=== PATIENT | male | born 1970 | race Caucasian/White ===

== ENCOUNTER 2017-01-27 21:19 | Inpatient (IN) | payer OTHER ==
[~2017-01-27] VITALS: Ht 182.9 cm; Wt 166.0 kg
[2017-01-27 22:00] LABS: RED BLOOD COUNT 4.86 M/UL (4.20-5.50); WHITE BLOOD COUNT 6.8 K/UL (4.5-11.0)
[2017-01-27 22:15] LABS: BUN/CREATININE RATIO 11 (0-10)
[2017-01-28] MEDS ORDERED: KLONOPIN TAB 00.5 MG PO (02:33)
[2017-01-28] MEDS ORDERED: NEURONTIN 300300 MG PO (02:33)
[2017-01-28] MEDS ORDERED: FLEXERIL 10 MG10 MG PO ×2 (02:33→02:57)
[2017-01-28] MEDS ORDERED: BASAGLAR INJ (03:03)
[2017-01-28] MEDS ORDERED: HUMALOG100 UNIT/3 INJ (03:07)
[2017-01-28] MEDS ORDERED: PROTONIX 20 MG20 MG PO (03:08)
[2017-01-28] MEDS ORDERED: LUVOX TAB 100100 MG PO (03:09)
[2017-01-28 03:13] LABS: BUN/CREATININE RATIO 15 (0-10)
[2017-01-28] MEDS ORDERED: IBUPROFEN800 MG PO (03:13)
[2017-01-28] MEDS ORDERED: LORTAB 7.5-3251 EACH PO (03:14)
[2017-01-28] MEDS ORDERED: METFORMIN HCL1000 MG PO (03:14)
[2017-01-29 03:58] LABS: HEMOGLOBIN 13.6 gm/dl (14.0-17.5); RED BLOOD COUNT 4.41 M/UL (4.20-5.50)
[2017-01-29 04:06] LABS: BUN/CREATININE RATIO 11 (0-10)
[2017-01-29 04:11] LABS: WHITE BLOOD COUNT 8.6 K/UL (4.5-11.0)
[2017-01-30 03:18] LABS: HEMOGLOBIN 13.1 gm/dl (14.0-17.5); RED BLOOD COUNT 4.26 M/UL (4.20-5.50); WHITE BLOOD COUNT 8.2 K/UL (4.5-11.0)
[2017-01-30 03:32] LABS: BUN/CREATININE RATIO 13 (0-10)
[2017-01-31 03:23] LABS: BUN/CREATININE RATIO 12 (0-10)
[2017-02-01 03:52] LABS: BUN/CREATININE RATIO 13 (0-10)
[2017-02-02 02:48] LABS: HEMOGLOBIN 13.8 gm/dl (14.0-17.5); RED BLOOD COUNT 4.46 M/UL (4.20-5.50); WHITE BLOOD COUNT 6.9 K/UL (4.5-11.0)
[2017-02-02 03:09] LABS: BUN/CREATININE RATIO 17 (0-10)
[2017-02-03 04:00] LABS: BUN/CREATININE RATIO 20 (0-10)
[2017-02-03] MEDS ORDERED: LEVEMIR100 UNIT/1 SC (12:16)
[2017-02-03] MEDS ORDERED: TYLENOL 325 MG325 MG PO (12:17)
== END 2017-02-03 12:56 | disposition home or self-care (01) | DRG 917 ==
LOC: ER1 21:19 → MED SURG 4 01-28 00:18 → CCU 01-28 00:18 → ZEROF 01-28 00:18 → CCU 01-28 02:20 → MED SURG 4 01-29 11:03
PROVIDERS: Emergency Medicine; Internal Medicine; Internal Medicine Infectious Disease; ADMIT Internal Medicine
PROC: 5A1935Z Respiratory Ventilation, Less than 24 Consecutive Hours (ICD-10-PCS; principal; 2017-01-27)
PROC: 0BH17EZ Insertion of Endotracheal Airway into Trachea, Via Natural or Artificial Opening (ICD-10-PCS; 2017-01-27)
DX: T42.6X1A Poisoning by other antiepileptic and sedative-hypnotic drugs, accidental (unintentional), initial encounter (principal); G92 Toxic encephalopathy; J96.01 Acute respiratory failure with hypoxia; M62.82 Rhabdomyolysis; Z68.42 Body mass index [BMI] 45.0-49.9, adult; T50.7X1A Poisoning by analeptics and opioid receptor antagonists, accidental (unintentional), initial encounter; T42.4X1A Poisoning by benzodiazepines, accidental (unintentional), initial encounter; D69.6 Thrombocytopenia, unspecified; E87.6 Hypokalemia; E11.42 Type 2 diabetes mellitus with diabetic polyneuropathy; E11.65 Type 2 diabetes mellitus with hyperglycemia; B18.2 Chronic viral hepatitis C; E83.42 Hypomagnesemia; R50.9 Fever, unspecified; E66.9 Obesity, unspecified; R25.2 Cramp and spasm; R40.2432 Glasgow coma scale score 3-8, at arrival to emergency department; Y92.59 Other trade areas as the place of occurrence of the external cause; F41.9 Anxiety disorder, unspecified; Z79.4 Long term (current) use of insulin; Z79.84 Long term (current) use of oral hypoglycemic drugs; Z79.891 Long term (current) use of opiate analgesic; Z79.1 Long term (current) use of non-steroidal anti-inflammatories (NSAID); Z79.899 Other long term (current) drug therapy
CPT/HCPCS: 31500; 36415; 36600; 51702; 70450; 71010; 72125; 80048; 80053; 80061; 80307; 81001; 82140; 82550; 82553; 82607; 82803; 82962; 83036; 83605; 83690; 83735; 83874; 83880; 84443; 84484; 84703; 85025; 85027; 85610; 85730; 87040; 87086; 93005; 94002; 94664; 96361; 96374; 96375; 97530; 97535; 99285; C9113; G0480; J1650; J2310; J3475; J7070

== ENCOUNTER → 2022-03-05 | Outpatient (CLI) | payer OTHER ==
[~2022-03-05] MED LIST: BASAGLAR INJ; FARXIGA10 MG PO; FLEXERIL 10 MG10 MG PO; GABAPENTIN600 MG PO; HUMALOG100 UNIT/3 INJ; HYDROCODON-ACE1 EAC6 PO; IBUPROFEN800 MG PO; KLONOPIN TAB 00.5 MG PO; LANTUS SOL100 UNIT/1 SQ; LEVEMIR100 UNIT/1 SC; LORTAB 7.5-3251 EACH PO; LUVOX TAB 100100 MG PO; METFORMIN HCL1000 MG PO; NEURONTIN 300300 MG PO; PROTONIX 20 MG20 MG PO; TYLENOL 325 MG325 MG PO
== END ==
LOC: KOH-I 09:07
DX: S82.452A Displaced comminuted fracture of shaft of left fibula, initial encounter for closed fracture (principal); S82.62XA Displaced fracture of lateral malleolus of left fibula, initial encounter for closed fracture
CPT/HCPCS: 73700

== ENCOUNTER 2022-03-08 12:25 | Inpatient (IN) | payer OTHER ==
[~2022-03-08] VITALS: Ht 188 cm; Wt 99.8 kg
[~2022-03-08 12:25] MED LIST changes: -FARXIGA10 MG PO; -GABAPENTIN600 MG PO; -HYDROCODON-ACE1 EAC6 PO; -LANTUS SOL100 UNIT/1 SQ
[2022-03-08 14:19] LABS: HEMOGLOBIN 13.1 gm/dl (14.0-17.5); RED BLOOD COUNT 4.26 M/UL (4.20-5.50); WHITE BLOOD COUNT 6.8 K/UL (4.5-11.0)
[2022-03-08] MEDS ORDERED: FARXIGA10 MG PO (14:30)
[2022-03-08] MEDS ORDERED: GABAPENTIN600 MG PO (14:31)
[2022-03-08] MEDS ORDERED: HYDROCODON-ACE1 EAC6 PO (14:32)
[2022-03-08] MEDS ORDERED: LANTUS SOL100 UNIT/1 SQ (14:34)
[2022-03-08 14:39] LABS: BUN/CREATININE RATIO 19 (0-10)
[2022-03-09 04:04] LABS: HEMOGLOBIN 12.3 gm/dl (14.0-17.5); RED BLOOD COUNT 4.01 M/UL (4.20-5.50); WHITE BLOOD COUNT 7.2 K/UL (4.5-11.0)
[2022-03-09 04:27] LABS: BUN/CREATININE RATIO 22 (0-10)
[2022-03-10 02:32] LABS: HEMOGLOBIN 13.1 gm/dl (14.0-17.5); RED BLOOD COUNT 4.16 M/UL (4.20-5.50); WHITE BLOOD COUNT 7.9 K/UL (4.5-11.0)
[2022-03-10 05:08] LABS: BUN/CREATININE RATIO 23 (0-10)
--- NOTE | 2022-03-10 19:36 | NUR ---
PATIENT JUST ARRIVED BACK ON FLOOR. VITALS FOLLOWS; BP 131/85, HR 97, 02 98% ON RA, R 16, TEMP 98.1. PATIENT IS ALERT AND ORIENTED X4, SOMEWHAT DROWSY BUT OPEN EYES TO SOUND AND RESPONDS TO QUESTIONS. NO PAIN IN AFFECTED EXTREMITY AT THIS TIME. CAP REFILL LESS THAN 2 SECONDS. PEDAL PULSES UNABLE TO BE ASSESSED AT THIS TIME DUE TO SURGICAL DRESSING. PATIENT PLACED ON SURGICAL VITALS. WILL UPDATE EHR CHANGES OCCUR.
[2022-03-11 03:31] LABS: BUN/CREATININE RATIO 24 (0-10); HEMOGLOBIN 12.8 gm/dl (14.0-17.5); RED BLOOD COUNT 4.15 M/UL (4.20-5.50); WHITE BLOOD COUNT 9.7 K/UL (4.5-11.0)
[2022-03-12 02:03] LABS: HEMOGLOBIN 13.1 gm/dl (14.0-17.5); RED BLOOD COUNT 4.19 M/UL (4.20-5.50)
[2022-03-12 02:39] LABS: BUN/CREATININE RATIO 23 (0-10)
--- NOTE | 2022-03-12 16:57 | NUR ---
ASSISTED DR. BEYER IN CHANGING PATIENTS DRESSINGS AT BEDSIDE.
[2022-03-13 03:06] LABS: HEMOGLOBIN 12.7 gm/dl (14.0-17.5); RED BLOOD COUNT 4.1 M/UL (4.20-5.50); WHITE BLOOD COUNT 8.7 K/UL (4.5-11.0)
[2022-03-13 03:44] LABS: BUN/CREATININE RATIO 28 (0-10)
[2022-03-14 05:23] LABS: HEMOGLOBIN 12.6 gm/dl (14.0-17.5); RED BLOOD COUNT 4.07 M/UL (4.20-5.50); WHITE BLOOD COUNT 7.1 K/UL (4.5-11.0)
[2022-03-14 05:52] LABS: BUN/CREATININE RATIO 26 (0-10)
[2022-03-15 04:22] LABS: RED BLOOD COUNT 4.2 M/UL (4.20-5.50); WHITE BLOOD COUNT 7.9 K/UL (4.5-11.0)
[2022-03-15 04:48] LABS: BUN/CREATININE RATIO 27 (0-10)
[2022-03-16 03:41] LABS: HEMOGLOBIN 12.7 gm/dl (14.0-17.5); RED BLOOD COUNT 4.13 M/UL (4.20-5.50); WHITE BLOOD COUNT 6.4 K/UL (4.5-11.0)
[2022-03-16 04:26] LABS: BUN/CREATININE RATIO 22 (0-10)
[2022-03-17] MEDS ORDERED: PERCOCET 5/325 T1 EA PO (09:46)
[2022-03-17] MEDS ORDERED: LOPRESSOR 50 MG50 MG PO (09:46)
[2022-03-17] MEDS ORDERED: LANTUS INS100 UTS/M1 SQ (09:46)
[2022-03-17] MEDS ORDERED: GABAPENTIN400 MG PO (09:46)
[2022-03-17] MEDS ORDERED: HUMALOG 10100 UNITS/ SC ×2 (09:46)
[2022-03-17] MEDS ORDERED: ENOXAPARIN40 MG/0.4 SC (09:46)
--- NOTE | 2022-03-17 11:00 | NUR ---
facility refused to take report on pt. stated nurse was busy
--- NOTE | 2022-03-17 12:30 | NUR ---
facility refused to take report on pt. stated nurse was on lunch
--- NOTE | 2022-03-17 13:00 | NUR ---
PT LEFT VIA WHEEL CHAIR TO [facility]
--- NOTE | 2022-03-17 13:09 | NUR ---
report called [facility]
== END 2022-03-17 13:02 | disposition swing bed (61) | DRG 494 ==
LOC: M/S 12:25 → CCU 12:25 → M/S 13:12
PROVIDERS: Internal Medicine; Physician Assistant; Podiatrist Foot & Ankle Surgery; ADMIT Internal Medicine
PROC: 0SSG04Z Reposition Left Ankle Joint with Internal Fixation Device, Open Approach (ICD-10-PCS; 2022-03-10)
PROC: 0MQR0ZZ Repair Left Ankle Bursa and Ligament, Open Approach (ICD-10-PCS; 2022-03-10)
PROC: 0QSK04Z Reposition Left Fibula with Internal Fixation Device, Open Approach (ICD-10-PCS; principal; 2022-03-10 18:30)
DX: S82.842A Displaced bimalleolar fracture of left lower leg, initial encounter for closed fracture (principal); S93.05XA Dislocation of left ankle joint, initial encounter; E11.40 Type 2 diabetes mellitus with diabetic neuropathy, unspecified; M19.91 Primary osteoarthritis, unspecified site; I10 Essential (primary) hypertension; B95.61 Methicillin susceptible Staphylococcus aureus infection as the cause of diseases classified elsewhere; R00.0 Tachycardia, unspecified; W01.0XXA Fall on same level from slipping, tripping and stumbling without subsequent striking against object, initial encounter; Z82.49 Family history of ischemic heart disease and other diseases of the circulatory system; Z91.041 Radiographic dye allergy status; Z83.3 Family history of diabetes mellitus; Z79.4 Long term (current) use of insulin; Z91.14 Patient's other noncompliance with medication regimen
CPT/HCPCS: 36415; 73610; 76000; 80048; 80053; 80202; 80307; 82962; 83036; 83540; 83550; 83735; 85025; 85027; 85610; 85652; 86140; 87040; 87070; 87077; 87186; 87205; 97116-GP-CQ; 97161; 97165; 97530; 97530-GP-CQ; A6212; C1713; C1751; G0378; G0379; J0360; J0690; J1170; J1650; J2001; J2250; J2270; J2370; J2704; J2795; J3010; J3370; J3475; J7040; J7070; U0002

== ENCOUNTER → 2022-05-20 | Outpatient (CLI) | payer OTHER ==
[~2022-05-20] MED LIST changes: +ENOXAPARIN40 MG/0.4 SC; +FARXIGA10 MG PO; +GABAPENTIN400 MG PO; +GABAPENTIN600 MG PO; +HUMALOG 10100 UNITS/ SC; +HYDROCODON-ACE1 EAC6 PO; +LANTUS INS100 UTS/M1 SQ; +LANTUS SOL100 UNIT/1 SQ; +LOPRESSOR 50 MG50 MG PO; +PERCOCET 5/325 T1 EA PO
== END ==
LOC: KOH-I 10:29
DX: Z53.8 Procedure and treatment not carried out for other reasons (principal)
CPT/HCPCS: 73610